=== PATIENT | male | born 1935 | race Caucasian/White ===

== ENCOUNTER → 2019-05-18 | Outpatient (CLI) | payer MEDICARE ==
[~2019-05-18] MED LIST: LIPITOR 80MG80 MG PO; LOPRESSOR 550 MG/TAB PO; NORCO 325 MG-51 TAB PO; PEPCID 20MG TAB20 MG PO; VASOTEC 5MG5 MG/TAB PO
== END ==
LOC: MC.RAD 09:46
DX: N62 Hypertrophy of breast (principal)